=== PATIENT | female | born 1995 | race Caucasian/White ===

== ENCOUNTER 2016-07-21 01:26 | Emergency (ER) | payer SELFPAY ==
[2016-07-21 01:28] VITALS: BP 116/75; PULSE 84; RESP 16; TEMP 97.5; O2SAT 100
[2016-07-21] MEDS ORDERED: SODIUM CHLOR 0.9% 1000 ML INJ 1,000 ML IV ONE (02:48)
--- NOTE | 2016-07-21 03:07 | PD ---
HPI Chief Complaint: Complaint Time Seen by Provider: 02:48 Travel History International Travel<30 days: No Contact w/Intl Traveler<30days: No Traveled to known affect area: No History of Present Illness HPI The patient is a 21-year-old female who presents emergency department for lower abdominal cramping and spotting in . The patient's last muscle cycle was May 07, 2016. Patient is with 2 previous vaginal deliveries at full-term and at 33 weeks of . The patient states she had light spotting 2 days ago which is light pink, states her blood type is O+. Patient also complains of mild lower abdominal cramping without any dysuria, frequency, or urgency. She does note her urine is dark colored, possibly hematuria. The patient is scheduled to fly out at 7 AM, back to [place] where she resides permanently. Symptoms are moderate, there are no alleviating or exacerbating factors. PFSH Past Medical History Asthma: Yes Diminished Hearing: No ?: LMP: 05/06/16 Past Surgical History Surgical History: No Previous Surgery Social History Alcohol Use: No Tobacco Use: Yes Substance Use: No Allergies-Medications (Allergen,Severity, Reaction): Coded Allergies: Biaxin (Verified Allergy, Severe, 07/21/16) [place] (Verified Allergy, Intermediate, 07/21/16) Review of Systems Except as stated in HPI: all other systems reviewed are Neg General / Constitutional: No: Fever Cardiovascular: No: Chest Pain or Discomfort Respiratory: No: Shortness of Breath Gastrointestinal: No: Nausea, Vomiting, Abdominal Pain Genitourinary: Positive: Hematuria, Vaginal Bleeding, No: Urgency, Frequency, Dysuria, Discharge Neurologic: No: Dizziness Physical Exam Narrative GENERAL: Awake, alert, nontoxic-appearing 21-year-old female who appears her stated age and is in no acute respiratory distress. SKIN: Focused skin assessment warm/dry. HEAD: Atraumatic. Normocephalic. EYES: No injection or drainage. ENT: No nasal bleeding or discharge. Mucous membranes pink and moist. NECK: Trachea midline. No JVD. CARDIOVASCULAR: Regular rate and rhythm. No murmur appreciated. RESPIRATORY: No accessory muscle use. Clear to auscultation. Breath sounds equal bilaterally. GASTROINTESTINAL: Abdomen soft, gravid inferior to the umbilicus. No rebound tenderness. Back: Mild left CVA tenderness. MUSCULOSKELETAL: No obvious deformities. No clubbing. No cyanosis. No edema. NEUROLOGICAL: Awake and alert. No obvious cranial nerve deficits. Motor grossly within normal limits. Normal speech. PSYCHIATRIC: Appropriate mood and affect; insight and judgment normal. Data Data Last Documented VS Vital Signs Date Time Temp Pulse Resp B/P Pulse Ox O2 Delivery O2 Flow Rate FiO2 07/21/16 02:58 18 07/21/16 01:28 97.5 84 116/75 100 Room Air Orders Urinalysis - C+S If Indicated (07/21/16 01:37) Beta Hcg (Quant/Titer) (07/21/16 02:48) Complete Rh (07/21/16 02:48) Sodium Chlor 0.9% 1000 Ml Inj (Ns 1000 M (07/21/16 02:48) Ed Urine Pregnancytest Poc (07/21/16 02:48) Ed Poc Ultrasound (07/21/16 02:48) Urine Culture (07/21/16 02:45) Ceftriaxone Inj (Rocephin Inj) (07/21/16 04:00) Labs Laboratory Tests Test 07/21/16 07/21/16 02:45 02:55 Urine Color YELLOW Urine Turbidity CLOUDY Urine pH 5.5 Urine Specific [place] 1.033 Urine Protein 30 mg/dL Urine Glucose (UA) NEG mg/dL Urine Ketones 40 mg/dL Urine Occult Blood SMALL Urine Nitrite NEG Urine Bilirubin NEG Urine Urobilinogen 2.0 MG/DL Urine Leukocyte Esterase LARGE Urine RBC 11 /hpf Urine WBC 26 /hpf Urine WBC Clumps OCC Urine Squamous Epithelial 52 /hpf Cells Urine Mucus MANY /lpf Microscopic Urinalysis Comment CULTURE INDICATED Human Chorionic Gonadotropin, [address] MIU/ML Quant Blood Type O POSITIVE Rho(D) Type POSITIVE MDM Medical Decision Making Medical Screen Exam Complete: Yes Emergency Medical Condition: Yes Medical Record Reviewed: Yes Interpretation(s) Laboratory Tests Test 07/21/16 07/21/16 02:45 02:55 Urine Color YELLOW Urine Turbidity CLOUDY Urine pH 5.5 Urine Specific [place] 1.033 Urine Protein 30 mg/dL Urine Glucose (UA) NEG mg/dL Urine Ketones 40 mg/dL Urine Occult Blood SMALL Urine Nitrite NEG Urine Bilirubin NEG Urine Urobilinogen 2.0 MG/DL Urine Leukocyte Esterase LARGE Urine RBC 11 /hpf Urine WBC 26 /hpf Urine WBC Clumps OCC Urine Squamous Epithelial 52 /hpf Cells Urine Mucus MANY /lpf Microscopic Urinalysis Comment CULTURE INDICATED Human Chorionic Gonadotropin, [address] MIU/ML Quant Blood Type O POSITIVE Rho(D) Type POSITIVE Differential Diagnosis Differential diagnosis includes threatened AB, ectopic , normal , UTI, dehydration. Narrative Course IV was established, labs are drawn and sent, and the patient was placed on cardiac telemetry monitoring and continuous pulse oximetry monitoring. Bedside ultrasound was performed which reveals an IUP with positive heart tones in the 140s. UA was sent to lab. The patient was administered 1 L of IV fluids. The patient is O+, therefore, no indication for RhoGAM. A UCG is greater than 90,000, ultrasound reveals IUP. UA is positive for infection, therefore, the patient was administered Rocephin 1 g intravenously and will be discharged home on Macrobid. The patient will be provided a copy of her labs at discharge. She is advised to follow-up with her production drilling machine operator. Procedures Procedure Narrative A bedside ultrasound was performed using a curvilinear probe which revealed IUP with positive heart tones. The patient tolerated the procedure without difficulty and there was no obvious complications. Diagnosis Primary Impression: UTI (urinary tract infection) Qualified Code: N30.01 - Acute cystitis with hematuria Additional Impression: Threatened Patient Instructions: General Instructions Additional Instructions: Please provide the patient a copy of her labs at discharge. Follow-up with your production drilling machine operator. Macrobid as directed. Plenty of fluids to stay hydrated. Med/Other Pt SpecificInfo: Prescription(s) given Scripts Nitrofurantoin Monohydrate Macrocrystals (Macrobid)100 Mg [id number] Mg PO BID 10 Days Ref 0 Prov:Robert Alcala MD 07/21/16 Disposition: 01 DISCHARGE HOME Condition: Stable Robert Alcala MD July 21, 2016 03:07
[2016-07-21 03:22] LABS: BLOOD, URINE SMALL (NEG); COMMENT (UR) CULTURE INDICATED; CULTURE IF INDICATED CULTURE INDICATED; GLUCOSE,URINE NEG (NEG); KETONE, URINE 40 mg/dL (NEG); MUCUS URINE MANY /lpf (OCC); NITRITE,URINE NEG (NEG); PH, URINE 5.5 (5.0-8.5); SQUAMOUS EPITHELIAL CELL URINE 52 /hpf (0-5); URINE COLOR YELLOW (YELLW/STRAW)
[2016-07-21] MEDS ORDERED: cefTRIAXone INJ 1,000 MG in SODIUM CHLORIDE 0.9% INJ 100 ML IV ONE (04:00)
[2016-07-21 04:08] LABS: BETA HCG QUANT 90345 MIU/ML (0-5)
[2016-07-21] MEDS ORDERED: MACR100C2 PO (04:14)
== END 2016-07-21 07:42 | disposition home or self-care (01) ==
LOC: NEPC 01:26
DX: O20.0 Threatened abortion (principal); O23.40 Unspecified infection of urinary tract in pregnancy, unspecified trimester; B96.20 Unspecified Escherichia coli [E. coli] as the cause of diseases classified elsewhere; Z3A.00 Weeks of gestation of pregnancy not specified
CPT/HCPCS: 81001; 84702; 84703; 86901; 87077; 87086; 87186; 96374; 99285; J0696; J7030